=== PATIENT | female | born 1990 ===

== ENCOUNTER 2017-08-29 20:41 | Inpatient (IN) | payer MEDICAID, OTHER ==
[2017-08-29 20:41] VITALS: BMI 22.5
[2017-08-29] MEDS ORDERED: Iohexol 240 (50 ml) PO ONE (20:59)
[2017-08-29] MEDS ORDERED: Sodium Chloride 0.9% 1,000 ML IV STA (20:59)
--- NOTE | 2017-08-29 21:02 | ED PDOC ---
HPI: Abdomen Time Seen by Provider: 08/29/17 20:51 Chief Complaint (Nursing): Abdominal Pain Chief Complaint (Provider): Abdominal pain History Per: Patient History/Exam Limitations: no limitations Onset/Duration Of Symptoms: Days (Saturday) Outside of [place] travel?: No Current Symptoms Are (Timing): Still Present Additional Complaint(s): Pt. with abd pain diffuse. Mild since Saturday, but worse today for 2 hrs. Started prophylactic augmentin for tooth root canal that is coming soon. Nausea , no vomit. No diarrhea. Has low back pain, mild. No dysuria, weakness, headaches, dizziness, chest pain, dyspnea, fever. No cough. Past Medical History Reviewed: Nursing Documentation, Vital Signs Vital Signs: Last Vital Signs Temp 99 F 08/29/17 20:45 Pulse 88 08/29/17 20:45 Resp 16 08/29/17 20:45 BP 124/73 08/29/17 20:45 Pulse Ox 99 08/29/17 23:48 - Medical History Other PMH: lupus - Surgical History Surgical History: No Surg Hx - Family History Family History: States: Unknown Family Hx - Living Arrangements Living Arrangements: With Family - Social History Current smoker - smoking cessation education provided: No Alcohol: None Drugs: Denies - Home Medications Home Medications: Ambulatory Orders Medication Instructions Recorded No Known Home Med [No Known Home 11/17/14 Med] - Allergies Allergies/Adverse Reactions: Allergies Allergy/AdvReac Type Severity Reaction Status Date / Time No Known Allergies Allergy Verified 11/17/14 09:18 Review of Systems ROS Statement: Except As Marked, All Systems Reviewed And Found Negative Gastrointestinal: Positive for: Nausea, Abdominal Pain Physical Exam - Reviewed Nursing Documentation Reviewed: Yes Vital Signs Reviewed: Yes - Physical Exam Appears: Positive for: Well, Non-toxic, No Acute Distress Head Exam: Positive for: ATRAUMATIC, NORMAL INSPECTION, NORMOCEPHALIC Skin: Positive for: Normal Color, Warm, DRY Eye Exam: Positive for: EOMI, Normal appearance, PERRL ENT: Positive for: Normal ENT Inspection Neck: Positive for: Normal, Painless ROM, Supple Cardiovascular/Chest: Positive for: Regular Rate, Rhythm Respiratory: Positive for: CNT, Normal Breath Sounds Gastrointestinal/Abdominal: Positive for: Bowel Sounds, Soft, Tenderness ( diffuse mild). Negative for: Guarding Back: Positive for: Normal Inspection. Negative for: L CVA Tenderness, R CVA Tenderness Extremity: Positive for: Normal ROM. Negative for: Tenderness, Pedal Edema Neurologic/Psych: Positive for: Alert, Oriented - Laboratory Results Result Diagrams: 08/29/17 21:32 08/29/17 21:32 Interpretation Of Abn Labs: no acute - ECG O2 Sat by Pulse Oximetry: 99 Pulse Ox Interpretation: Normal - Progress ED Course And Treament: 1224: Stable. Spoke with Amaury. Will admit. president ceo & founder spoken to and will consult and discuss with Dr. Lora. Disposition - Clinical Impression Clinical Impression: Partial small bowel obstruction - Patient ED Disposition Is Patient to be Admitted: Yes Counseled Patient/Family Regarding: Studies Performed, Diagnosis - Disposition Disposition Time: 00:28 Condition: FAIR - Pt Status Changed To: Hospital Disposition Of: Inpatient - Admit Certification Admit to Inpatient:: After my assessment, the patient will require hospitalization for at least two midnights. This is because of the severity of symptoms shown, intensity of services needed, and/or the medical risk in this patient being treated as an outpatient. - POA Present On Arrival: None
[2017-08-29] MEDS ORDERED: Iohexol 240 (50 ml) ONE (21:06)
[2017-08-29 21:39] LABS: BASO % 0.2 % (0.0-2.0); EOS # 0.1 K/uL (0.0-0.7); EOS % 0.5 % (0.0-4.0); HEMOGLOBIN 13.4 g/dL (12.0-16.0); LYMPH # 0.4 K/uL (1.0-4.3); LYMPH % 3.3 % (20.0-40.0); MEAN CELL VOLUME 91.4 fl (81.0-99.0); MEAN CORPUSCULAR HEMOGLOBIN 30.3 pg (27.0-31.0); MEAN CORPUSCULAR HGB CONC 33.1 g/dL (33.0-37.0); MEAN PLATELET VOLUME 8.4 fl (7.2-11.7); MONO # 0.4 K/uL (0.0-0.8); NEUT # 9.9 K/uL (1.8-7.0); NRBC % 0.1 % (0.0-0.0); PLATELET COUNT 173 K/uL (130-400); RBC 4.41 Mil/uL (3.80-5.20); RED CELL DISTRIBUTION WIDTH 12.6 % (11.5-14.5); WHITE BLOOD COUNT 10.8 K/uL (4.8-10.8)
[2017-08-29 21:54] LABS: ALBUMIN 4.8 g/dL (3.5-5.0); ALT/SGPT 25 U/L (9-52); AST/SGOT 25 U/L (14-36); BLOOD UREA NITROGEN 17 mg/dl (7-17); CALCIUM 9.3 mg/dL (8.4-10.2); GFR AFRICAN-AMERICAN > 60; GFR NON-AFRICAN AMERICAN > 60; LIPASE 108 U/L (23-300)
[2017-08-29 22:12] LABS: ALB/GLOB RATIO 1.3 (1.0-2.1)
[2017-08-29 22:55] LABS: BANDS 4 % (0-2); EOSINOPHIL 1 % (0-7); HYPOCHROMIC SLIGHT; LYMPHOCYTE 7 % (20-50); MONOCYTE 5 % (0-10); NEUTROPHIL 83 % (42-75); PLATELET ESTIMATE NORMAL (NORMAL); TOTAL CELLS COUNTED 100
[2017-08-29] MEDS ORDERED: Iohexol 300 100 ML IJ ONE (23:14)
[2017-08-29] MEDS ORDERED: Sodium Chloride 0.9% 50 ML IV ONE (23:14)
[2017-08-30] MEDS ORDERED: Morphine 4 MG/ML VIAL IV ONE (00:07)
[2017-08-30] MEDS ORDERED: Morphine 4 MG/ML VIAL ONE (00:10)
--- NOTE | 2017-08-30 01:18 | CP.PCM.CON ---
History of Present Illness - History of Present Illness History of Present Illness: General Surgery Dr. Lora 27 y/o F w/ PMHx of H.Pylori, PUD, and Lupus presents to the ED c/o abd pain. Pt states pain began 2 days ago as mild discomfort. Today, however, the pain became significantly worse. Pain described as diffuse, sharp, crampy abd pain w / radiation to the back. Pt has never before experienced this pain. Pt recently started PPx Amoxicillin for upcoming dental work. Pt admits to nausea and diarrhea but denies vomiting, fever or chills. PMHx: see above Meds: reviewed in chart NKDA PSHx: EGD, colonoscopy, breast stereotactic Bx SHx: denies tobacco, Etoh, drug use FHx: GI cancer Review of Systems - Review of Systems All systems: reviewed and no additional remarkable complaints except (see HPI) Past Patient History - Past Medical History & Family History Past Medical History?: No - Past Social History Alcohol: None Drugs: Denies - ENDOCRINE/METABOLIC Hx Systemic Lupus Erythematosus: Yes - PSYCHIATRIC Hx Substance Use: No - SURGICAL HISTORY Hx Surgeries: Yes Hx Breast Biopsy: Yes (STERIOTACTIC) - ANESTHESIA Hx Anesthesia: No Meds Allergies/Adverse Reactions: Allergies Allergy/AdvReac Type Severity Reaction Status Date / Time No Known Allergies Allergy Verified 11/17/14 09:18 Physical Exam - Constitutional Appears: Non-toxic, No Acute Distress - Head Exam Head Exam: NORMAL INSPECTION - Eye Exam Eye Exam: Normal appearance - ENT Exam ENT Exam: Mucous Membranes Dry - Respiratory Exam Respiratory Exam: NORMAL BREATHING PATTERN. absent: Accessory Muscle Use, Respiratory Distress - GI/Abdominal Exam GI & Abdominal Exam: Distended (mild), Soft, Tenderness (mild diffuse TTP). absent: Guarding, Rebound, Rigid - Extremities Exam Extremities exam: Positive for: normal inspection - Neurological Exam Neurological exam: Alert, Oriented x3 - Psychiatric Exam Psychiatric exam: Normal Affect, Normal Mood - Skin Skin Exam: Dry, Intact, Normal Color, Warm Results - Vital Signs Recent Vital Signs: Last Vital Signs Temp 99 F 08/29/17 20:45 Pulse 88 08/29/17 20:45 Resp 16 08/29/17 20:45 BP 124/73 08/29/17 20:45 Pulse Ox 99 08/30/17 00:28 - Labs Result Diagrams: 08/29/17 21:32 12/28/17 21:32 Labs: Laboratory Results - last 24 hr 08/29/17 08/29/17 21:32 21:32 WBC 10.8 RBC 4.41 Hgb 13.4 Hct 40.3 MCV 91.4 MCH 30.3 MCHC 33.1 RDW 12.6 Plt Count 173 MPV 8.4 Neut % (Auto) 92.0 H Lymph % (Auto) 3.3 L [place] % (Auto) 4.0 Eos % (Auto) 0.5 Baso % (Auto) 0.2 Neut # 9.9 H Lymph # 0.4 L [place] # 0.4 Eos # 0.1 Baso # 0.0 Neutrophils % (Manual) 83 H Band Neutrophils % 4 H Lymphocytes % (Manual) 7 L Monocytes % (Manual) 5 Eosinophils % (Manual) 1 Platelet Estimate Normal Hypochromasia (manual) Slight Sodium 140 Potassium 3.7 Chloride 105 Carbon Dioxide 23 Anion Gap 16 BUN 17 Creatinine 0.6 L Est GFR ( Amer) > 60 Est GFR (Non-Af Amer) > 60 Random Glucose 100 Calcium 9.3 Total Bilirubin 0.7 AST 25 ALT 25 Alkaline Phosphatase 65 Total Protein 8.5 H Albumin 4.8 Globulin 3.6 Albumin/Globulin Ratio 1.3 Lipase 108 - Imaging and Cardiology CT scan - abdomen Status: Image reviewed by me, Report reviewed by me Assessment & Plan - Assessment and Plan (Free Text) Assessment: 27 y/o F w/ abd pain 2/2 pSBO vs iatrogenic enterocolitis - sips and chips only --> NPO if pain becomes worse - IVF - pain management - anti-emetic - IV abx - NGT if vomiting develops - monitor bowel function Will discuss w/ Dr. Guido Olsen DO PGY2
[2017-08-30] MEDS: metroNIDAZOLE 500mg/100ml NS 100 ML IVPB SCH ×3 (01:53→16:44)
[2017-08-30] MEDS: Potassium Chl 20 mEq in D5-NS 1,000 ML IV SCH ×3 (01:53→22:45)
[2017-08-30] MEDS: Ciprofloxacin 400mg/200ml D5W 400 MG/200 ML BAG IVPB SCH ×3 (02:53→16:44)
[2017-08-30] MEDS ORDERED: Influenza Vaccine 18yr & older 0.5 ML/45 MCG SYR IM ONE (08:00)
--- NOTE | 2017-08-30 08:06 | CP.PCM.HP ---
History of Present Illness - History of Present Illness History of Present Illness: pt admitted for colitis r/o sbo. per surgical team unlikely sbo and to be monitored w/o surgery planned. gi consult pending. at present pt w/ some nauseabut w/o pain. no f/c. had bm overnight. bnw and imaging noted. anbx initiated Present on Admission - Present on Admission Any Indicators Present on Admission: No Review of Systems - Gastrointestinal Gastrointestinal: As Per HPI, Abdominal Pain, Nausea, Vomiting Past Patient History - Past Medical History & Family History Past Medical History?: No - Past Social History Smoking Status: Never Smoked - CARDIAC Hx Cardiac Disorders: No - PULMONARY Hx Respiratory Disorders: No - NEUROLOGICAL Hx Neurological Disorder: No - HEENT Hx HEENT Problems: No - RENAL Hx Chronic Kidney Disease: No - ENDOCRINE/METABOLIC Hx Endocrine Disorders: Yes Hx Systemic Lupus Erythematosus: Yes - HEMATOLOGICAL/ONCOLOGICAL Hx Blood Disorders: No Hx AIDS: No Hx Human Immunodeficiency Virus (HIV): No - INTEGUMENTARY Hx Dermatological Problems: No - MUSCULOSKELETAL/RHEUMATOLOGICAL Hx Musculoskeletal Disorders: No Hx Falls: No - GASTROINTESTINAL Hx Gastrointestinal Disorders: Yes Hx Nausea: Yes Hx Vomiting: Yes - GENITOURINARY/GYNECOLOGICAL Hx Genitourinary Disorders: No - PSYCHIATRIC Hx Psychophysiologic Disorder: No Hx Substance Use: No - SURGICAL HISTORY Hx Surgeries: Yes Hx Breast Biopsy: Yes (STERIOTACTIC) Other/Comment: s/p rt breast lumpectomy - ANESTHESIA Hx Anesthesia: No Hx Anesthesia Reactions: No Hx Malignant Hyperthermia: No Has any member of the family had a problem w/ anesthesia?: No Meds Allergies/Adverse Reactions: Allergies Allergy/AdvReac Type Severity Reaction Status Date / Time No Known Allergies Allergy Verified 11/17/14 09:18 Physical Exam - Constitutional Appears: Well, Non-toxic, No Acute Distress - Head Exam Head Exam: ATRAUMATIC, NORMAL INSPECTION, NORMOCEPHALIC - Eye Exam Eye Exam: EOMI, Normal appearance, PERRL Pupil Exam: NORMAL ACCOMODATION, PERRL - ENT Exam ENT Exam: Mucous Membranes Moist, Normal Exam - Neck Exam Neck exam: Positive for: Normal Inspection - Respiratory Exam Respiratory Exam: Clear to Auscultation Bilateral, NORMAL BREATHING PATTERN - Cardiovascular Exam Cardiovascular Exam: REGULAR RHYTHM, RRR, +S1, +S2 - GI/Abdominal Exam GI & Abdominal Exam: Normal Bowel Sounds, Soft. absent: Tenderness - Extremities Exam Extremities exam: Positive for: full ROM, normal capillary refill, normal inspection, pedal pulses present - Back Exam Back exam: NORMAL INSPECTION - Neurological Exam Neurological exam: Alert, CN II-XII Intact, Normal Gait, Oriented x3, Reflexes Normal - Psychiatric Exam Psychiatric exam: Normal Affect, Normal Mood - Skin Skin Exam: Dry, Intact, Normal Color, Warm Results - Vital Signs Recent Vital Signs: Last Vital Signs Temp 98.2 F 08/30/17 01:43 Pulse 85 08/30/17 01:43 Resp 18 08/30/17 01:43 BP 121/80 08/30/17 01:43 Pulse Ox 100 08/30/17 01:43 - Labs Result Diagrams: 08/30/17 10:15 08/29/17 21:32 Labs: Laboratory Results - last 24 hr 08/29/17 08/29/17 21:32 21:32 WBC 10.8 RBC 4.41 Hgb 13.4 Hct 40.3 MCV 91.4 MCH 30.3 MCHC 33.1 RDW 12.6 Plt Count 173 MPV 8.4 Neut % (Auto) 92.0 H Lymph % (Auto) 3.3 L [place] % (Auto) 4.0 Eos % (Auto) 0.5 Baso % (Auto) 0.2 Neut # 9.9 H Lymph # 0.4 L [place] # 0.4 Eos # 0.1 Baso # 0.0 Neutrophils % (Manual) 83 H Band Neutrophils % 4 H Lymphocytes % (Manual) 7 L Monocytes % (Manual) 5 Eosinophils % (Manual) 1 Platelet Estimate Normal Hypochromasia (manual) Slight Sodium 140 Potassium 3.7 Chloride 105 Carbon Dioxide 23 Anion Gap 16 BUN 17 Creatinine 0.6 L Est GFR ( Amer) > 60 Est GFR (Non-Af Amer) > 60 Random Glucose 100 Calcium 9.3 Total Bilirubin 0.7 AST 25 ALT 25 Alkaline Phosphatase 65 Total Protein 8.5 H Albumin 4.8 Globulin 3.6 Albumin/Globulin Ratio 1.3 Lipase 108 Assessment & Plan (1) Colitis Assessment and Plan: cipro/flagyl surgery/gi npo and adv as abraham/per surg pain and nausea control Status: Acute (2) DVT prophylaxis Assessment and Plan: scd nad ae hose ambulation Status: Acute Decision To Admit - Pt Status Changed To: Hospital Disposition Of: Inpatient - Admit Certification Admit to Inpatient:: After my assessment, the patient will require hospitalization for at least two midnights. This is because of the severity of symptoms shown, intensity of services needed, and/or the medical risk in this patient being treated as an outpatient. - . Bed Request Type: Med/Surg Admitting Physician: Elisa Neville
[2017-08-30] MEDS ORDERED: Ergocalciferol 50,000 Intl Units Cap PO SCH (08:15)
--- NOTE | 2017-08-30 08:21 | CT ---
PROCEDURE: CT Abdomen and Pelvis with contrast HISTORY: abd pain COMPARISON: None. TECHNIQUE: Contrast dose: Omnipaque 300, 80. Radiation dose: Total exam DLP = 222.53 MGy-cm. This CT exam was performed using one or more of the following dose reduction techniques: Automated exposure control, adjustment of the mA and/or kV according to patient size, and/or use of iterative reconstruction technique. FINDINGS: LOWER THORAX: Unremarkable. LIVER: A 6 mm lucency is seen at the right lobe liver which well-circumscribed but too small to characterize nonetheless. Remainder of the liver is unremarkable. GALLBLADDER AND BILE DUCTS: Unremarkable. PANCREAS: Unremarkable. No gross lesion or ductal dilatation. SPLEEN: Unremarkable. ADRENALS: Unremarkable. No mass. KIDNEYS AND URETERS: Unremarkable. No hydronephrosis. No solid mass. VASCULATURE: Unremarkable. No aortic aneurysm. BOWEL: The stomach is distended with retained food however oral contrast has transited through the bowel and is largely seen occupying the colon and distal small bowel loops. There is a dilated loop of small bowel seen inferior to the greater curvature of the stomach partially filled with residual oral contrast material and air in a pattern that likely reflects limited ileus. No mural thickening seen accompanying this loop of bowel though an early enteritis not completely excluded. Partial small bowel obstruction is not favored but is not completely excluded either. Further clinical correlation is advised. APPENDIX: Normal appendix. PERITONEUM: Unremarkable. No free fluid. No free air. LYMPH NODES: Unremarkable. No enlarged lymph nodes. BLADDER: Unremarkable. REPRODUCTIVE: Lobular changes at the left side of the uterus may indicate uterine fibroid. The adnexa compartments are unremarkable bilaterally. BONES: No acute fracture. OTHER FINDINGS: None. IMPRESSION: The stomach is distended and a short loop of proximal small bowel seen inferior to the stomach is also distended which may be a function of ileus. Oral contrast is seen throughout the large bowel and much of the distal small bowel having traverse this distended proximal small bowel loop. No mesenteric edema, mural thickening or free intraperitoneal gas is identified. There is no ascites either. Consider potential differential diagnosis of proximal partial small bowel obstruction or even enteritis though neither of these is favored. Further clinical correlation is advised. A tiny lucency is seen in the right lobe liver too small to characterize. Concordant preliminary report from [facility], 08/30/2017.
[2017-08-30 11:02] LABS: BASO % 0.2 % (0.0-2.0); EOS % 0.5 % (0.0-4.0); LYMPH # 0.4 K/uL (1.0-4.3); LYMPH % 6.3 % (20.0-40.0); MEAN CELL VOLUME 90.9 fl (81.0-99.0); MEAN CORPUSCULAR HEMOGLOBIN 30.4 pg (27.0-31.0); MEAN CORPUSCULAR HGB CONC 33.5 g/dL (33.0-37.0); MEAN PLATELET VOLUME 8.5 fl (7.2-11.7); MONO # 0.5 K/uL (0.0-0.8); MONO % 8.7 % (0.0-10.0); NEUT # 4.8 K/uL (1.8-7.0); NEUT % 84.3 % (50.0-75.0); RBC 3.93 Mil/uL (3.80-5.20); RED CELL DISTRIBUTION WIDTH 12.4 % (11.5-14.5); WHITE BLOOD COUNT 5.7 K/uL (4.8-10.8)
[2017-08-30 11:52] LABS: ALB/GLOB RATIO 1.2 (1.0-2.1); ALBUMIN 3.9 g/dL (3.5-5.0); ALT/SGPT 24 U/L (9-52); AST/SGOT 24 U/L (14-36); BLOOD UREA NITROGEN 11 mg/dl (7-17); CALCIUM 9.2 mg/dL (8.4-10.2); GFR AFRICAN-AMERICAN > 60; GFR NON-AFRICAN AMERICAN > 60
[2017-08-30] MEDS ORDERED: MELOXICAM PO SCH (22:00)
[2017-08-31] MEDS: metroNIDAZOLE 500mg/100ml NS 100 ML IVPB SCH ×2 (00:30→08:34)
[2017-08-31] MEDS: Ciprofloxacin 400mg/200ml D5W 400 MG/200 ML BAG IVPB SCH ×2 (01:48→08:34)
[2017-08-31 08:22] VITALS: BP 107/70; PULSE 66; RESP 20; TEMP 98.2; O2SAT 97
--- NOTE | 2017-08-31 10:18 | CP.PCM.DIS ---
Provider - Provider Date of Admission: 08/30/17 00:23 Attending physician: Elisa Neville MD Time Spent in preparation of Discharge (in minutes): 15 Diagnosis - Discharge Diagnosis (1) Colitis Status: Acute (2) DVT prophylaxis Status: Acute Hospital Course - Lab Results Lab Results: Most Recent Lab Values WBC 5.7 K/uL (4.8-10.8) 08/30/17 10:15 RBC 3.93 Mil/uL (3.80-5.20) 08/30/17 10:15 Hgb 12.0 g/dL (12.0-16.0) 08/30/17 10:15 Hct 35.7 % (34.0-47.0) 08/30/17 10:15 MCV 90.9 fl (81.0-99.0) 08/30/17 10:15 MCH 30.4 pg (27.0-31.0) 08/30/17 10:15 MCHC 33.5 g/dL (33.0-37.0) 08/30/17 10:15 RDW 12.4 % (11.5-14.5) 08/30/17 10:15 Plt Count 154 K/uL (130-400) 08/30/17 10:15 MPV 8.5 fl (7.2-11.7) 08/30/17 10:15 Neut % (Auto) 84.3 % (50.0-75.0) H 08/30/17 10:15 Lymph % (Auto) 6.3 % (20.0-40.0) L 08/30/17 10:15 [place] % (Auto) 8.7 % (0.0-10.0) 08/30/17 10:15 Eos % (Auto) 0.5 % (0.0-4.0) 08/30/17 10:15 Baso % (Auto) 0.2 % (0.0-2.0) 08/30/17 10:15 Neut # 4.8 K/uL (1.8-7.0) 08/30/17 10:15 Lymph # 0.4 K/uL (1.0-4.3) L 08/30/17 10:15 [place] # 0.5 K/uL (0.0-0.8) 08/30/17 10:15 Eos # 0.0 K/uL (0.0-0.7) 08/30/17 10:15 Baso # 0.0 K/uL (0.0-0.2) 08/30/17 10:15 Neutrophils % (Manual) 83 % (42-75) H 08/29/17 21:32 Band Neutrophils % 4 % (0-2) H 08/29/17 21:32 Lymphocytes % (Manual) 7 % (20-50) L 08/29/17 21:32 Monocytes % (Manual) 5 % (0-10) 08/29/17 21:32 Eosinophils % (Manual) 1 % (0-7) 08/29/17 21:32 Platelet Estimate Normal (NORMAL) 08/29/17 21:32 Hypochromasia (manual) Slight 08/29/17 21:32 Sodium 137 mmol/l (132-148) 08/30/17 10:15 Potassium 3.6 MMOL/L (3.6-5.0) 08/30/17 10:15 Chloride 107 mmol/L (98-107) 08/30/17 10:15 Carbon Dioxide 23 mmol/L (22-30) 08/30/17 10:15 Anion Gap 11 (10-20) 08/30/17 10:15 BUN 11 mg/dl (7-17) 08/30/17 10:15 Creatinine 0.6 mg/dl (0.7-1.2) L 08/30/17 10:15 Est GFR ( Amer) > 60 08/30/17 10:15 Est GFR (Non-Af Amer) > 60 08/30/17 10:15 Random Glucose 113 mg/dL (65-105) H 08/30/17 10:15 Calcium 9.2 mg/dL (8.4-10.2) 08/30/17 10:15 Total Bilirubin 0.6 mg/dl (0.2-1.3) 08/30/17 10:15 AST 24 U/L (14-36) 08/30/17 10:15 ALT 24 U/L (9-52) 08/30/17 10:15 Alkaline Phosphatase 51 U/L (38-126) 08/30/17 10:15 Total Protein 7.1 G/DL (6.3-8.2) 08/30/17 10:15 Albumin 3.9 g/dL (3.5-5.0) 08/30/17 10:15 Globulin 3.2 gm/dL (2.2-3.9) 08/30/17 10:15 Albumin/Globulin Ratio 1.2 (1.0-2.1) 08/30/17 10:15 Lipase 108 U/L (23-300) 08/29/17 21:32 Discharge Exam - Head Exam Head Exam: ATRAUMATIC, NORMAL INSPECTION, NORMOCEPHALIC - Eye Exam Eye Exam: EOMI, Normal appearance, PERRL Pupil Exam: NORMAL ACCOMODATION, PERRL - Neck Exam Neck exam: Normal Inspection - Respiratory Exam Respiratory Exam: Clear to PA & Lateral, NORMAL BREATHING PATTERN, UNREMARKABLE - Cardiovascular Exam Cardiovascular Exam: REGULAR RHYTHM, RRR, +S1, +S2 - GI/Abdominal Exam GI & Abdominal Exam: Normal Bowel Sounds, Soft, Unremarkable - Extremities Exam Extremities exam: full ROM, normal capillary refill, normal inspection, pedal pulses present - Neurological Exam Neurological exam: Alert, CN II-XII Intact, Normal Gait, Oriented x3, Reflexes Normal - Psychiatric Exam Psychiatric exam: Normal Affect, Normal Mood - Skin Skin Exam: Dry, Intact, Normal Color, Warm Discharge Plan - Discharge Medications Prescriptions: Ciprofloxacin HCl [Cipro] 500 mg PO BID #14 tablet Dicyclomine [Bentyl] 10 mg PO QID PRN #20 cap PRN Reason: abd cramping Famotidine [Pepcid] 20 mg PO DAILY #30 tab metroNIDAZOLE [Flagyl] 500 mg PO TID #21 tab - Follow Up Plan Condition: FAIR Disposition: HOME/ ROUTINE Instructions: Bowel Obstruction (DC) Additional Instructions: doing wlel, no f/c, n/v/d. no pain. abraham po. cleared by surgery/gi for dc final dx-ciolitis meds e-rx, f/u rmg 2 days, rted prn, meds per med rec Referrals: Amaury Glover, DNP, EMT P [Advanced Practice Nurse] -
--- NOTE | 2017-09-03 09:33 | CON ---
DATE: 08/30/2017 REASON FOR CONSULTATION: Nausea, vomiting and diarrhea. HISTORY OF PRESENT ILLNESS: This is a pleasant 27-year-old female with essentially no past medical history who essentially had some nausea and vomiting overnight. She comes in for 1 to 2 days of nausea and vomiting and some diarrhea. Vomiting has improved, the diarrhea has improved. She has been tolerating clears. Currently lying in bed comfortably, in no apparent distress. PAST MEDICAL HISTORY: As above. PAST SURGICAL HISTORY: As above. MEDICATIONS: Have been reviewed. REVIEW OF SYSTEMS: All other systems have been reviewed and negative apart from the HPI. PHYSICAL EXAMINATION: VITAL SIGNS: Here in the hospital, grossly unremarkable. GENERAL: This is a pleasant middle-aged female, lying in bed comfortably, in no apparent distress. HEENT: Head is normocephalic and atraumatic. Eyes, pupils are equally reactive to light bilaterally. No conjunctival pallor or icterus. NECK: Supple. Normal range of motion. No lymphadenopathy appreciated. LUNGS: Coarse breath sounds bilaterally. HEART: S1, S2. Regular rhythm. No murmurs appreciated. ABDOMEN: Soft and nontender. Bowel sounds are present. No rebound. No guarding. RECTAL: Deferred. EXTREMITIES: Pulses felt bilaterally. SKIN: Warm, dry, and intact. NEUROLOGIC: A and O x3. LABORATORY DATA: All labs and radiology have been reviewed. Labs include a questionable proximal bowel obstruction. Labs include WBC 5.7, hemoglobin 12.0. essentially normal. ASSESSMENT AND PLAN: This is a 27-year-old female with what appears to be gastroenteritis, constipation. From gastrointestinal standpoint, ____ surgery. Discharge plan when able. Mayank Benitez MD/ PhD
== END 2017-08-31 12:05 | disposition home or self-care (01) | DRG 392 ==
LOC: H.ER 20:41 → H.ERHOLD 08-30 00:23 → H.MEDSURG1 08-30 01:30
PROVIDERS: ADMIT Family Medicine; ATTEND Family Medicine
PROC: 3E0234Z Introduction of Serum, Toxoid and Vaccine into Muscle, Percutaneous Approach (ICD-10-PCS; principal; 2017-08-30)
DX: K52.9 Noninfective gastroenteritis and colitis, unspecified (principal); M32.9 Systemic lupus erythematosus, unspecified; Z23 Encounter for immunization; Z87.11 Personal history of peptic ulcer disease